=== PATIENT | male | born 1960 | race Caucasian/White ===

== ENCOUNTER 2024-02-13 20:26 | Inpatient (IN) ==
--- NOTE | 2024-02-13 20:36 | Emergency Department Note ---
Impression & Plan Colonic mass, Bowel obstruction, Nausea, Acute UTI, Abdominal pain ED Provider Note NAME: DOROTHY GROSS AGE: 64 SEX: M : 1960 ARRIVES VIA: Walk-In INFORMANT: Patient, significant other ED PROVIDER(S): Jose R Tran MD CHIEF COMPLAINT: Abdominal pain, abnormal CAT scan, possible bowel obstruction and cancer MEDICAL DECISION MAKING: Patient presented due to concern for possible bowel obstruction as well as colon cancer. I was able to obtain the patient's outpatient records IV was established blood work was obtained initially CTs were ordered pending patient's outpatient records. Patient was ordered IV fluids IV morphine as well as IV Zosyn. Blood culture obtained along with a VBG and a lactate. Blood work shows a white count of 13 with a hemoglobin of 8.3. Platelet count is elevated at 76. Blood gas pH that is slightly higher than normal but no evidence of acidosis. Hypokalemia and hypocalcemia noted. Magnesium was added. Patient was ordered a gram of calcium for replacement. The patient's urinalysis does show concern for possible infection. Given the concerns for the bowel obstruction as well as new cancer diagnoses I did speak with Dr. Lugo he recommended transfer to tertiary care center. I did speak with Dr. Mcdonnell at [facility] who did accept the patient. No beds available until tomorrow. I did order chest and abdominal x-ray which does show likely bowel obstruction but no evidence of obvious free air under the diaphragm. I did discuss this further with Dr. Lugo who recommended an NG tube. Given that there are no beds currently available the patient was admitted to [facility] by Dr. Wiley. KUB was obtained post NG placement and did appear in appropriate position at this time. Discussion w/ other healthcare providers: Dr. Lugo general surgery Dr. Mcdonnell general surgery [facility] Dr. Wiley inpatient medicine service Prior /Outside records reviewed: [facility] note from earlier today from a Dr. Kline. Patient did have a white count of [address] of the abdomen pelvis that showed concern for possible gastroesophageal mass as well as rectosigmoid mass bowel obstruction adrenal nodule and possible bladder fistulization. Patient reportedly left AGAINST MEDICAL ADVICE at that time. The patient's CT angiography of the chest did not show any evidence of PE. Differential diagnosis: Appendicitis, testicular torsion, UTI, diverticulitis, obstruction, renal colic, mesenteric adenitis, enteririts, PUD, pancreatitis, biliary pathology, hernia, volvulus, constipation, as well as other pathologies were considered. Diagnostics, as interpreted by me: ECG: None Cardiac monitoring: An order was placed for continuous cardiac monitoring. The monitor shows a rate of 109 with tachycardic and regular rhythm. Patient was placed on pulse oximetry Medical decision rules: None Imaging studies: I reviewed some of the patient's prior imaging study reports as noted above the patient did have a CT angiography of the chest as well as CT abdomen pelvis. I informally interpreted the patient's chest and abdominal x-rays which do show bowel obstruction but without obvious free air under the diaphragm. HPI: Patient presents with significant other bedside due to concern for reported bowel obstructions as well as possible new masses. Patient reports that he had about 2 weeks of abdominal pain which is in the lower and mid abdomen. Nonradiating. Has been fairly constant although does come and go. The patient states that he does get nausea and sometimes will precipitate and induce emesis. The patient states he did have some of this this morning states that it is a little bit of brown. Patient denies any chest pains or shortness of breath. Patient states that he when he did urinate today did have some air noted in it. The patient reports that his CAT scan reported some invasion of the mass into the bladder. PAST MEDICAL HISTORY: See Below PAST SURGICAL HISTORY: See Below SOCIAL HISTORY: See Below HOME MEDICATIONS: See Below ALLERGIES: See Below VITALS: See Below PHYSICAL EXAMINATION: GENERAL: NAD, non-toxic. EYE EXAM: Normal conjunctiva. PERRL, no anisocoria and EOM's grossly intact w/o pain. OROPHARYNX: Moist mucus membranes, grossly normal dentition. NECK: Trachea midline, no stridor. LUNGS: Clear to auscultation. Normal chest wall mechanics. HEART: Tachycardic and regular, no MRG. ABDOMEN: Mild distention, no reproducible pain, no masses, no rebound or guarding. BACK: No CVA TTP. SKIN: No rashes and no bruising. UPPER EXTREMITIES: Upper extremities are grossly normal. LOWER EXTREMITIES: Grossly normal, no edema. NEURO EXAM: A&O x3, cranial nerves II-XII grossly intact, normal speech, moves all 4 extremities. Past Med/Surg History Problem List (Updated 02/14/24 @ 00:45 by Jose R Tran MD) Abdominal pain (Acute) Acute UTI (Acute) Nausea (Acute) Bowel obstruction (Acute) Colonic mass (Acute) Social History Preferred Language: Bulgarian Feels Safe at Home: Yes Allergies Allergies Allergy/AdvReac Type Severity Reaction Status Date / Time pollen extracts Allergy Congested Unverified 02/13/24 22:01 Home Meds Home Medications Medication Instructions Recorded Confirmed No Known Home Medications 02/13/24 02/13/24 Results & Data (ED) Vital Signs Vital Signs - 24 hr 02/13/24 20:32 02/13/24 22:16 02/13/24 22:48 Temperature 36.7 C Temperature Source Temporal Artery Scan Pulse Rate 130 H 110 H Pulse Rate from SpO2 Sensor 92 H Respiratory Rate 16 24 Blood Pressure 123/76 136/99 Blood Pressure Mean 91 111 Pulse Oximetry 98 96 Oxygen Delivery Method Room Air Room Air Sepsis Recent Fever Within 48 Hours No Sepsis New/Unexplained Change in Mental Status No Sepsis Action Taken by Nursing No Action Required 02/13/24 22:50 Temperature Temperature Source Pulse Rate 119 H Pulse Rate from SpO2 Sensor Respiratory Rate Blood Pressure Blood Pressure Mean Pulse Oximetry Oxygen Delivery Method Sepsis Recent Fever Within 48 Hours Sepsis New/Unexplained Change in Mental Status Sepsis Action Taken by Intermediate Medications Current Medication List: was personally reviewed by me Laboratory Data Attestation: I reviewed the patient's lab results. 02/13/24 21:43 02/13/24 21:43 Lab Results 02/13/24 02/13/24 Range/Units 21:43 Unknown WBC 13.50 H (4.8-10.8) K/ul RBC 4.29 L (4.70-6.10) M/uL Hgb 8.3 L (14.0-18.0) g/dl Hct 27.9 L (42.0-52.0) % MCV 65.0 L (80.0-100.0) fL MCH 19.3 L (25.0-34.0) pg MCHC 29.7 L (32.0-36.0) g/dL RDW Std Deviation 46.6 H (36.4-46.3) fL RDW Coeff of Eddie 20.8 H (11.5-14.5) % Plt Count 786 H (130-400) K/uL MPV 8.2 L (9.4-12.4) fL Immature Gran % (Auto) 0.3 % Neut % (Auto) 78.5 % Lymph % (Auto) 10.3 % Payne % (Auto) 10.8 % Eos % (Auto) 0.0 % Baso % (Auto) 0.1 % Neut # (Auto) 10.60 H (1.40-6.50) K/uL Lymph # (Auto) 1.39 (1.20-3.40) K/uL Payne # (Auto) 1.46 H (0.11-0.59) K/uL Eos # (Auto) 0.00 (0.00-0.50) K/uL Baso # (Auto) 0.01 (0.00-0.20) K/uL Immature Gran # (Auto) 0.04 (0.01-0.20) K/uL Poikilocytosis Present Anisocytosis Present Microcytosis Present Target Cells 1+ VBG pH 7.48 H (7.36-7.41) VBG pCO2 43 (38-50) mmHg VBG pO2 22 mmHg VBG HCO3 32 mmol/L VBG O2 Saturation < 60.0 % VBG Base Excess 7.6 mEq/L Sodium 136 (136-145) mmol/L Potassium 3.4 L (3.5-5.1) mmol/L Chloride 99 (98-107) mmol/L Carbon Dioxide 27 (21-32) mmol/L Anion Gap 10 (3-11) BUN 22 (6-23) mg/dl Creatinine 0.80 (0.6-1.4) mg/dl Est Cr Clr Drug Dosing 94.5 ml/min eGFR 99.44 BUN/Creatinine Ratio 27.5 H (10-20) Glucose 204 H (70-99(Fasting)) mg/dl Lactate 1.6 (0.4-2.0) mmol/L Calcium 8.1 L (8.6-10.3) mg/dl Magnesium 1.8 (1.7-2.4) mg/dl Total Bilirubin 0.8 (0.2-1.0) mg/dl AST 12 L (13-39) U/L ALT 11 (7-52) U/L Alkaline Phosphatase 51 (34-104) U/L Total Protein 6.0 (6.0-8.3) gm/dl Albumin 3.0 L (3.4-5.0) gm/dl Globulin 3.0 (2.5-4.0) gm/dl Albumin/Globulin Ratio 1.0 (0.9-2) Lipase 3 L (11-82) U/L Procalcitonin 0.10 (0-0.5) ng/ml Urine Color [place] Urine Appearance Turbid A (Clear) Urine pH 5.5 (4.5-7.5) Ur Specific [place] > 1.045 H (1.000-1.030) Urine Protein 2+ H (Negative) Urine Glucose (UA) Negative (Negative) Urine Ketones Trace H (Negative) Urine Blood 3+ H (Negative) Urine Nitrite Positive A (Negative) Urine Bilirubin 2+ H (Negative) Urine Urobilinogen Negative (Negative) Ur Leukocyte Esterase 3+ H (Negative) Urine WBC (Auto) >50 H (0-5) /hpf Urine RBC (Auto) >20 H (0-2) /hpf U Hyaline Cast (Auto) >20 H (0-2) /lpf U Epithel Cells (Auto) 6-10 H (0-2) /hpf Urine Bacteria (Auto) 4+ H (None Seen) Administered Medications Discontinued Medications Piperacillin Sod/Tazobactam Sod (Zosyn) 4.5 gm in 100 mls @ 200 mls/hr IV NOW ONE; Protocol Stop: 02/13/24 21:18 Last Infusion: 02/13/24 23:29 Dose: Infused Documented By: Admin: 02/13/24 21:48 Dose: 200 mls/hr Documented By: CARLOS Sodium Chloride (Nss) 1,000 mls @ 999 mls/hr IV .Q1H1M ONE Stop: 02/13/24 21:49 Last Infusion: 02/13/24 23:29 Dose: Infused Documented By: Admin: 02/13/24 21:48 Dose: 999 mls/hr Documented By: CARLOS Calcium Gluconate () 1,000 mg in 60 mls @ 240 mls/hr IV NOW STA Stop: 10/11/24 22:55 Last Infusion: 02/13/24 23:59 Dose: Infused Documented By: MLJose E Admin: 02/13/24 23:25 Dose: 240 mls/hr Documented By: FRANKI Labetalol HCl (Labetalol Hcl Iv 5 Mg/Ml 20ml) 5 mg IV NOW STA Stop: 02/13/24 22:56 Last Admin: 02/13/24 23:08 Dose: Not Given Documented By: BS Morphine Sulfate (Morphine Sulfate 4 Mg/Ml 1 Ml Carp\Vial) 4 mg IV NOW STA Stop: 02/13/24 21:56 Last Admin: 02/13/24 22:02 Dose: 4 mg Documented By: BS Discharge Plan Visit Data Chief Complaint: GI Assessment Stated Complaint: CANCER,BLOCKED BOWEL ED Provider: Jose R Tran Discharge Problem: Colonic mass, Bowel obstruction, Nausea, Acute UTI, Abdominal pain Forms Stand Alone Forms: [place] Prescriptions Prescriptions: No Action No Known Home Medications Referrals Referrals: PCP,NO [Physician] - Discharge Problem: Bowel obstruction Qualifiers: Intestinal obstruction type: unspecified Intestinal obstruction extent: u nspecified extent Qualified Code(s): K56.609 - Unspecified intestinal obstruction, unspecified as to partial versus complete obstruction Abdominal pain Qualifiers: Abdominal location: generalized Qualified Code(s): R10.84 - Generalized abdominal pain
[2024-02-13] MEDS: PIPERACILLIN/TAZOBACTAM 4.5 GM/100 ML BAG IV ONE (21:48)
[2024-02-13] MEDS: SODIUM CHLORIDE 0.9% 1,000 ML IV ONE (21:48)
[2024-02-13 21:54] LABS: Base Excess VBG 7.6 mEq/L; HCO3 VBG 32 mmol/L; Oxygen Saturation VBG < 60.0 %; PCO2 VBG 43 mmHg (38-50); PO2 VBG 22 mmHg; pH VBG 7.48 (7.36-7.41)
[2024-02-13] MEDS: MoRPHine SULFATE 4 MG/ML 1 ML CARP\\VIAL IV STA (22:02)
[2024-02-13 22:04] LABS: Basophils # (auto) 0.01 K/uL (0.00-0.20); Basophils % (auto) 0.1 %; Hematocrit (blood only) 27.9 % (42.0-52.0); Hemoglobin 8.3 g/dl (14.0-18.0); Immature Granulocytes # (auto) 0.04 K/uL (0.01-0.20); Immature Granulocytes % (auto) 0.3 %; Lymphocytes # (auto) 1.39 K/uL (1.20-3.40); Lymphocytes % (auto) 10.3 %; Mean Corpuscular Hemoglobin 19.3 pg (25.0-34.0); Mean Corpuscular Hgb Conc 29.7 g/dL (32.0-36.0); Monocytes # (auto) 1.46 K/uL (0.11-0.59); Monocytes % (auto) 10.8 %; Neutrophils % (auto) 78.5 %; RDW Coefficient of Variation 20.8 % (11.5-14.5); RDW Standard Deviation 46.6 fL (36.4-46.3); Red Blood Count 4.29 M/uL (4.70-6.10)
[2024-02-13 22:11] LABS: BUN Creatinine Ratio 27.5 (10-20); Bilirubin,Total 0.8 mg/dl (0.2-1.0); Calcium 8.1 mg/dl (8.6-10.3); Creatinine Clr Calc Pharmacy 94.5 ml/min; Potassium 3.4 mmol/L (3.5-5.1)
[2024-02-13 22:29] LABS: Appearance Urine Turbid (Clear); Bacteria Urine Automated 4+ (None Seen); Bilirubin Urine 2+ (Negative); Blood Urine 3+ (Negative); Cast Urine Automated >20 /lpf (0-2); Color Urine Orange; Glucose Urine UA Negative (Negative); Ketones Urine Trace (Negative); Leukocyte Esterase Urine 3+ (Negative); Nitrite Urine Positive (Negative); Protein Urine 2+ (Negative); RBC Urine Automated >20 /hpf (0-2); Specific Gravity Urine > 1.045 (1.000-1.030); Urobilinogen Urine Negative (Negative); WBC Urine Automated >50 /hpf (0-5); pH Urine 5.5 (4.5-7.5)
[2024-02-13 22:37] LABS: Mean Platelet Volume 8.2 fL (9.4-12.4); Platelet Count 786 K/uL (130-400)
[2024-02-13 22:50] LABS: Anisocytosis Present; Microcytosis Present; Poikilocytosis Present; Target Cells 1+
[2024-02-13] MEDS: LABETALOL HCL IV 5 MG/ML 20ML IV STA (23:08)
[2024-02-13 23:11] LABS: Magnesium 1.8 mg/dl (1.7-2.4)
--- NOTE | 2024-02-13 23:13 | History & Physical Report ---
Date of Service February 13, 2024 Assessment & Plan (1) Colonic mass: Plan: 64-year-old male with past medical history significant for hypertension, impaired fasting glucose went to PCPs office today because of ongoing nausea vomiting, diarrhea and abdominal pain and was sent to ER where he was found to have abdominal mass. Patient states last 3 months he lost about 30 pounds. Last 2 weeks he is having a lot of nausea ,abdominal pain and diarrhea on and of f. Was not able to eat much. He is on Toprol-XL 50 mg daily for his blood pressure as per patient but not taking for last 2 weeks because of lot of nausea and also thought the blood pressure is low because of loss of lot of weight. At PCPs office today also found to have tachycardia. Initially went to [place] ER where CAT scan was done which showed massive colonic distention on the basis of an obstructing rectosigmoid mass which is highly suspicious of malignancy and also there was dependent air within the urinary bladder and also thickening of esophagus and proximal stomach with masslike thickening of the GE junction and also solid 3 cm nodule lateral limb left adrenal gland found. Then patient came to [facility]. Er discussed with surgery and was recommended transfer to tertiary care. [facility] general surgery accepted in transfer but they do not have beds tonight so we are called for admission. On presentation heart rate was in 130s .Currently tachycardia improved. Has nausea and hiccups. Denies any headache. No dizziness. No blurred vision. No runny nose or sore throat. No cough. No difficulty swallowing. No chest pain or shortness of breath. Denies any blood in the stools. Urine is dark. Ambulating okay. Denies any fevers. Colonic mass New diagnosis Last 30 pounds in 3 months Last 2 weeks nausea and abdominal pain and diarrhea Vomiting CT scan showing massive colonic distention possible obstructing rectosigmoid mass suspicious for malignancy and also dependent air in urinary bladder. 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 Also thickening of his esophagus and proximal stomach at GE junction. Solitary significant nodule lateral limb left adrenal gland. Awaiting transfer to [place] [facility] Zosyn for possible rectovesical fistula and UTI IV fluids N.p.o. IV antiemetics as needed IV Dilaudid as needed Tachycardia Patient stopped his Toprol-XL about [address] an IV Lopressor 2.5 mg every 6 hours with holding parameters Hypertension IV Lopressor 2.5 g every 6 hours with holding parameters Will monitor Anemia Mostly from above Will follow labs Hypokalemia Will replace Mild hypocalcemia Received calcium gluconate in the ER Follow labs DVT prophylaxis SCDs Disposition Telemetry Awaiting transfer to [place] History of Present Illness Chief Complaint: Nausea and vomiting. Abdominal mass Primary Care Provider: Marry Tiwari PA-C 64-year-old male with past medical history significant for hypertension, impaired fasting glucose went to PCPs office today because of ongoing nausea vomiting, diarrhea and abdominal pain and was sent to ER where he was found to have abdominal mass. Patient states last 3 months he lost about 30 pounds. Last 2 weeks he is having a lot of nausea ,abdominal pain and diarrhea on and off. Was not able to eat much. He is on Toprol-XL 50 mg daily for his blood pressure as per patient but not taking for last 2 weeks because of lot of nausea and also thought the blood pressure is low because of loss of lot of weight. At PCPs office today also found to have tachycardia. Initially went to [place] ER where CAT scan was done which showed massive colonic distention on the basis of an obstructing rectosigmoid mass which is highly suspicious of malignancy and also there was dependent air within the urinary bladder and also thickening of esophagus and proximal stomach with masslike thickening of the GE junction and also solid 3 cm nodule lateral limb left adrenal gland found. Then patient came to [facility]. Er discussed with surgery and was recommended transfer to tertiary care. [facility] general surgery accepted in transfer but they do not have beds tonight so we are called for admission. On presentation heart rate was in 130s .Currently tachycardia improved. Has nausea and hiccups. Denies any headache. No dizziness. No blurred vision. No runny nose or sore throat. No cough. No difficulty swallowing. No chest pain or shortness of breath. Denies any blood in the stools. Urine is dark. Ambulating okay. Denies any fevers. Past medical history. As mentioned above Past surgical history. Patient denies any surgeries. Social history. Denies smoking. Denies alcohol use. Denies drug use. Family history. Father had colon and esophageal cancer. Mother had squamous cancer of the mouth. Allergies Allergy/AdvReac Type Severity Reaction Status Date / Time pollen extracts Allergy Congested Unverified 02/13/24 22:01 Home Medications Medication Instructions Recorded Confirmed Type No Known Home Medications 02/13/24 02/13/24 History Past Med/Surg History Problem List (Updated 02/14/24 @ 00:56 by Melvin Bower) Abdominal pain (Acute) Acute UTI (Acute) Nausea (Acute) Bowel obstruction (Acute) Colonic mass (Acute) Social History Smoking Status: Never smoker Hx Alcohol Use: No Hx Substance Use: No Preferred Language: [place] Communication Ability: Effective Psychology Department Chair Required: No Beliefs That Will Affect Care: None Current Living Situation: Alone Feels Safe at Home: Yes Safety Concerns: Feels Safe At This Time Assistive Devices: None Review of Systems Review of Systems: All systems reviewed & are unremarkable except as noted in HPI & below Physical Exam Physical Exam: General- Not in distress Head- atraumatic Eyes- PERRL. ENT- oropharynx clear Neck- supple, no JVD. Lungs- clear to auscultation no wheezing or crackles Heart- regular rhythm; no murmur, no gallop. Abdomen- normal bowel sounds, soft, mild diffuse discomfort, no distension. Extremities- no pretibial edema, no erythema seen. Neuro- alert, oriented PERRL, no facial palsy; no dysarthria; moves extremities Results & Data Results & Data Vital Signs (Past 12 Hours) Vital Signs Temp Pulse Resp BP Pulse Ox O2 Del Method 02/13/24 22:48 110 H 24 136/99 96 02/13/24 22:16 Room Air 02/13/24 20:32 36.7 C 130 H 16 123/76 98 Room Air Diagnostic Findings Laboratory Results WBC 13.50 K/ul (4.8-10.8) H 02/13/24 21:43 RBC 4.29 M/uL (4.70-6.10) L 02/13/24 21:43 Hgb 8.3 g/dl (14.0-18.0) L 02/13/24 21:43 Hct 27.9 % (42.0-52.0) L 02/13/24 21:43 MCV 65.0 fL (80.0-100.0) L 02/13/24 21:43 MCH 19.3 pg (25.0-34.0) L 02/13/24 21:43 MCHC 29.7 g/dL (32.0-36.0) L 02/13/24 21:43 RDW Std Deviation 46.6 fL (36.4-46.3) H 02/13/24 21:43 RDW Coeff of Eddie 20.8 % (11.5-14.5) H 02/13/24 21:43 Plt Count 786 K/uL (130-400) H 02/13/24 21:43 MPV 8.2 fL (9.4-12.4) L 02/13/24 21:43 Immature Gran % (Auto) 0.3 % 02/13/24 21:43 Neut % (Auto) 78.5 % 02/13/24 21:43 Lymph % (Auto) 10.3 % 02/13/24 21:43 [place] % (Auto) 10.8 % 02/13/24 21:43 Eos % (Auto) 0.0 % 02/13/24 21:43 Baso % (Auto) 0.1 % 02/13/24 21:43 Neut # (Auto) 10.60 K/uL (1.40-6.50) H 02/13/24 21:43 Lymph # (Auto) 1.39 K/uL (1.20-3.40) 02/13/24 21:43 [place] # (Auto) 1.46 K/uL (0.11-0.59) H 02/13/24 21:43 Eos # (Auto) 0.00 K/uL (0.00-0.50) 02/13/24 21:43 Baso # (Auto) 0.01 K/uL (0.00-0.20) 02/13/24 21:43 Immature Gran # (Auto) 0.04 K/uL (0.01-0.20) 02/13/24 21:43 Poikilocytosis Present 02/13/24 21:43 Anisocytosis Present 02/13/24 21:43 Microcytosis Present 02/13/24 21:43 Target Cells 1+ 02/13/24 21:43 VBG pH 7.48 (7.36-7.41) H 02/13/24 21:43 VBG pCO2 43 mmHg (38-50) 02/13/24 21:43 VBG pO2 22 mmHg 02/13/24 21:43 VBG HCO3 32 mmol/L 02/13/24 21:43 VBG O2 Saturation < 60.0 % 02/13/24 21:43 VBG Base Excess 7.6 mEq/L 02/13/24 21:43 Sodium 136 mmol/L (136-145) 02/13/24 21:43 Potassium 3.4 mmol/L (3.5-5.1) L 02/13/24 21:43 Chloride 99 mmol/L (98-107) 02/13/24 21:43 Carbon Dioxide 27 mmol/L (21-32) 02/13/24 21:43 Anion Gap 10 (3-11) 02/13/24 21:43 BUN 22 mg/dl (6-23) 02/13/24 21:43 Creatinine 0.80 mg/dl (0.6-1.4) 02/13/24 21:43 Est Cr Clr Drug Dosing 94.5 ml/min 02/13/24 21:43 eGFR 99.44 02/13/24 21:43 BUN/Creatinine Ratio 27.5 (10-20) H 02/13/24 21:43 Glucose 204 mg/dl (70-99(Fasting)) H 02/13/24 21:43 Lactate 1.6 mmol/L (0.4-2.0) 02/13/24 21:43 Calcium 8.1 mg/dl (8.6-10.3) L 02/13/24 21:43 Magnesium 1.8 mg/dl (1.7-2.4) 02/13/24 21:43 Total Bilirubin 0.8 mg/dl (0.2-1.0) 02/13/24 21:43 AST 12 U/L (13-39) L 02/13/24 21:43 ALT 11 U/L (7-52) 02/13/24 21:43 Alkaline Phosphatase 51 U/L (34-104) 02/13/24 21:43 Total Protein 6.0 gm/dl (6.0-8.3) 02/13/24 21:43 Albumin 3.0 gm/dl (3.4-5.0) L 02/13/24 21:43 Globulin 3.0 gm/dl (2.5-4.0) 02/13/24 21:43 Albumin/Globulin Ratio 1.0 (0.9-2) 02/13/24 21:43 Lipase 3 U/L (11-82) L 02/13/24 21:43 Procalcitonin 0.10 ng/ml (0-0.5) 02/13/24 21:43 Urine Color [place] 02/13/24 Unknown Urine Appearance Turbid (Clear) A 02/13/24 Unknown Urine pH 5.5 (4.5-7.5) 02/13/24 Unknown Ur Specific [place] > 1.045 (1.000-1.030) H 02/13/24 Unknown Urine Protein 2+ (Negative) H 02/13/24 Unknown Urine Glucose (UA) Negative (Negative) 02/13/24 Unknown Urine Ketones Trace (Negative) H 02/13/24 Unknown Urine Blood 3+ (Negative) H 02/13/24 Unknown Urine Nitrite Positive (Negative) A 02/13/24 Unknown Urine Bilirubin 2+ (Negative) H 02/13/24 Unknown Urine Urobilinogen Negative (Negative) 02/13/24 Unknown Ur Leukocyte Esterase 3+ (Negative) H 02/13/24 Unknown Urine WBC (Auto) >50 /hpf (0-5) H 02/13/24 Unknown Urine RBC (Auto) >20 /hpf (0-2) H 02/13/24 Unknown U Hyaline Cast (Auto) >20 /lpf (0-2) H 02/13/24 Unknown U Epithel Cells (Auto) 6-10 /hpf (0-2) H 02/13/24 Unknown Urine Bacteria (Auto) 4+ (None Seen) H 02/13/24 Unknown Code Status & VTE Plan VTE Prophylaxis Plan VTE Prophylaxis will be ordered: Yes
[2024-02-13] MEDS: CALCIUM GLUCONATE 1,000 MG/60 ML BAG IV STA (23:25)
[2024-02-14] MEDS ORDERED: NITROGLYCERIN SL 0.4 MG/TAB TAB SL PRN (01:04)
[2024-02-14] MEDS ORDERED: ONDANSETRON INJ 2 MG/ML 2 ML VIAL IV PRN (01:04)
[2024-02-14] MEDS ORDERED: HYDROmorphone INJ 0.5 MG/0.5 ML SYR IV PRN (01:04)
[2024-02-14] MEDS: HYDROmorphone INJ 0.5 MG/0.5 ML SYR IV PRN ×2 (01:22→05:10)
[2024-02-14] MEDS: METOPROLOL TARTRATE 1 MG/ML VIAL IV SCH (01:23)
[2024-02-14] MEDS: POTASSIUM CHLORIDE / WTR 10 MEQ/100 ML PLCT IV SCH (01:34)
[2024-02-14] MEDS: D5W AND NSS 1,000 ML IV SCH (01:34)
[2024-02-14] MEDS: PIPERACILLIN/TAZOBACTAM 4.5 GM/100 ML BAG IV SCH (03:41)
[2024-02-14 03:47] VITALS: RESP 18; O2SAT 92
[2024-02-14 05:59] LABS: Basophils # (auto) 0.01 K/uL (0.00-0.20); Basophils % (auto) 0.1 %; Eosinophils # (auto) 0.01 K/uL (0.00-0.50); Eosinophils % (auto) 0.1 %; Hematocrit (blood only) 26.4 % (42.0-52.0); Hemoglobin 7.8 g/dl (14.0-18.0); Immature Granulocytes # (auto) 0.05 K/uL (0.01-0.20); Immature Granulocytes % (auto) 0.3 %; Lymphocytes # (auto) 1.72 K/uL (1.20-3.40); Lymphocytes % (auto) 11.9 %; Mean Corpuscular Hemoglobin 19.4 pg (25.0-34.0); Mean Corpuscular Hgb Conc 29.5 g/dL (32.0-36.0); Mean Corpuscular Volume 65.7 fL (80.0-100.0); Monocytes # (auto) 1.75 K/uL (0.11-0.59); Monocytes % (auto) 12.1 %; Neutrophils # (auto) 10.87 K/uL (1.40-6.50); Neutrophils % (auto) 75.5 %; RDW Coefficient of Variation 20.8 % (11.5-14.5); RDW Standard Deviation 47.7 fL (36.4-46.3); Red Blood Count 4.02 M/uL (4.70-6.10); White Blood Count 14.41 K/ul (4.8-10.8)
[2024-02-14 06:08] LABS: Mean Platelet Volume 8.1 fL (9.4-12.4); Platelet Count 745 K/uL (130-400)
[2024-02-14 06:17] LABS: Albumin Level 2.8 gm/dl (3.4-5.0); BUN Creatinine Ratio 29.4 (10-20); Bilirubin Direct 0.2 mg/dl (0-0.2); Bilirubin,Total 0.6 mg/dl (0.2-1.0); Calcium 7.8 mg/dl (8.6-10.3); Creatinine Clr Calc Pharmacy 111.2 ml/min; Magnesium 1.7 mg/dl (1.7-2.4); Phosphorus 3.3 mg/dl (2.5-4.9); Potassium 3.3 mmol/L (3.5-5.1); Total Protein 5.5 gm/dl (6.0-8.3)
[2024-02-14 06:29] LABS: Anisocytosis Present; Microcytosis Present; Poikilocytosis Present; Polychromasia 2+
[2024-02-14 07:36] VITALS: BP 151/88; PULSE 96; TEMP 98.4
--- NOTE | 2024-02-14 07:50 | XRay Report ---
KUB HISTORY: Status post placement of an enteric tube NG tube placement confirmation COMPARISON: Acute abdominal series radiographs 02/13/2024 FINDINGS: Status post placement of an enteric tube, distal tip in the expected location of the mid st omach. Extensive fecal retention of the right hemicolon. Gaseous distention of the large bowel measur es up to approximately 8.3 cm. No definite pneumoperitoneum or small bowel dilation identified. Renal shadows are obscured. No definite urolith. IMPRESSION: 1. Status post placement of an enteric tube, distal tip in the expected location of the mid gastric b nathalie. 2. Marked fecal retention is most pronounced in the right hemicolon. 3. Gaseous distention of the large bowel suggestive of colonic ileus. A distal obstruction could appe ar similarly. Follow-up recommended. ACT 112: Negative or not required by law. The above report was generated using voice recognition software. It may contain grammatical, syntax o r spelling errors. Electronically signed by: Roberto Chand M.D. 02/14/2024 7:49 AM
--- NOTE | 2024-02-14 07:50 | XRay Report ---
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 There is mild subsegmental bibasila r atelectasis. No pneumothorax or pleural effusion. Spondylotic spurring of the spine. Contrast noted within the urinary bladder lumen. Extensive fecal retention of the right hemicolon. Ga seous distention of the large bowel measures up to approximately 8.3 cm. No definite pneumoperitoneum or small bowel dilation identified. Renal shadows are obscured. Lumbar levoscoliosis. No definite ur olith. IMPRESSION: 1. No acute process of the chest. 2. Marked fecal retention is most pronounced in the right hemicolon. 3. Gaseous distention of the large bowel suggestive of colonic ileus. A distal obstruction could appe ar similarly. Follow-up recommended. ACT 112: Negative or not required by law. The above report was generated using voice recognition software. It may contain grammatical, syntax o r spelling errors. Electronically signed by: Roberto Chand M.D. 02/14/2024 7:48 AM
--- OUTSIDE RECORDS SUMMARY | 2024-02-14 09:47 | External Medical Summary | Summary of Care ---
Author Name Unknown Organization [facility] Address [address] [place] [address] Phone [phone] Care Team Providers Care Certified Fire Investigator Name Role Phone Unavailable Primary Care Provider Unavailabl e Reason for Visit * Reason Comments Acute Encounter Details Date Type Department Care Team (Late st Contact Info) Description 02/13/2024 10:20 AM EDT Office Visit Family Medicine [address] [place] [phone] Marry Tiwari PA-C [address] [place] [address] D[place] Dorado [id number] Tachycardia* Allergies Active Allergy Reactions Criticality Noted Date Comments Lisinopril Hives 11/25/2011 documented as of this encounter (statuses as of 02/13/2024) Medications Medication Sig Dispensed Refills Start Date End Date Status Metoprolol Succinate ER 50 MG Oral Tablet Extended Release 24 Hour (toPROL XL)Indications:[facility] hypertension TAKE 1 TABLET BY MOUTH EVERY DAY IN THE MORNING 90 Tablet 1 02/24/2023 02/13/2024 Discontinued documented as of this encounter (statuses as of 02/13/2024) Active Problems Problem Noted Date Diagnosed Date BMI 33.0-33.9,adult 01/23/2022 Overview: 229 Primary hypertension 11/18/2011 Impaired fasting glucose documented as of this encounter (statuses as of 02/13/2024) Resolved Problems Problem Noted Date Diagnosed Date Resolved Date Anxiety disorder 06/09/2015 documented as of this encounter (statuses as of 02/13/2024) Immunizations Name Administration Dates Next Due PPD 09/06/2013 TDAP, Age 7 and older, IM (Adacel) 09/14/2018 documented as of this encounter Social History Tobacco Use Types Packs/Day Years Used Date Smoking Tobacco: Never Smokeless Tobacco: Never Alcohol Use Standard Drinks/Week Comments No 0 (1 standard drink = 0.6 oz pur e alcohol) Sex and Gender Information Value Date Recorded Sex Assigned at Not on file Gender Identity Not on file Sexual Orientation Not on file Job Start Date Occupation Industry Not on file Not on file Not on file documented as of this encounter Last Filed Vital Signs Vital Sign Reading Time Taken Comments Blood Pressure 142/96 02/13/2024 9:14 AM EDT Pulse 124 02/13/2024 9:14 AM EDT Temperature 36.3 C (97.4 F) 02/13/2024 9:14 AM ED T Respiratory Rate - - Oxygen Saturation 95% 02/13/2024 9:14 AM EDT Inhaled Oxygen Concentration - - Weight 79.8 kg (176 lb) 02/13/2024 9:14 AM EDT Height 175.3 cm (5' 9") 02/13/2024 9:14 AM EDT Body Mass Index 25.99 02/13/2024 9:14 AM EDT documented in this encounter Progress Notes * Marry Tiwari PA-C - 02/13/2024 9:24 AM EDT Nursing Notes: Patricia Champagne LPN 02/13/24 0924 Signed Lost a lot of weight in the last two months, un intentionally Cannot eat Nothing stays down Throwing up "brown" Diarrhea Stomach pain Have been present for about 2-3 weeks Review of patient's allergies indicates: Allergen Reactions Lisinopril Hives No current outpatient medications on file. No current facility-administered medications for this visit. Past Medical History: Diagnosis Date Anxiety disorder 11/22/2011 BMI 33.0-33.9,adult 01/23/2022 229 Encounter for hepatitis C screening test for low risk patient 01/23/2022 negative Impaired fasting glucose 12/30/2011 Primary hypertension 11/18/2011 Social History Socioeconomic History Marital status: Single Spouse name: Not on file Number of children: Not on file Years of education: Not on file Highest education level: Not on file Occupational History Not on file Tobacco Use Smoking status: Never Smokeless tobacco: Never Substance and Sexual Activity Alcohol use: No Drug use: No Sexual activity: Not on file Other Topics Concern Not on file Social History Narrative Not on file Social Determinants of Health Financial Resource Strain: Not on file Food Insecurity: Not on file Transportation Needs: Not on file Social Connections: Unknown (02/13/2024) Social Connections How often do you feel lonely or isolated from those around you? (Adult - for ages 18 years and over): Not on file Housing Stability: Not on file O:Blood pressure 142/96, pulse 124, temperature 36.3 C (97.4 F), temperature source Tympanic, height 1.753 m (5' 9"), weight 79.8 kg (176 lb), SpO2 95%. * Marry Tiwari PA-C - 02/13/2024 9:20 AM EDT Nursing Notes: Patricia Champagne LPN 02/13/24 0916 Sign at exiting of workspace Lost a lot of weight in the last two months, un intentionally Cannot eat Nothing stays down Throwing up "brown" Diarrhea Stomach pain Have been present for about 2-3 weeks Pt here today with abdominal pain, vomiting, diarrhea, large weight loss for the past couple weeks.Pt denies chest pain, SOB, dizziness, lightheadedness, syncope. Review of patient's allergies indicates: Allergen Reactions Lisinopril Hives No current outpatient medications on file. No current facility-administered medications for this visit. Past Medical History: Diagnosis Date Anxiety disorder 11/22/2011 BMI 33.0-33.9,adult 01/23/2022 229 Encounter for hepatitis C screening test for low risk patient 01/23/2022 negative Impaired fasting glucose 12/30/2011 Primary hypertension 11/18/2011 Social History Socioeconomic History Marital status: Single Spouse name: Not on file Number of children: Not on file Years of education: Not on file Highest education level: Not on file Occupational History Not on file Tobacco Use Smoking status: Never Smokeless tobacco: Never Substance and Sexual Activity Alcohol use: No Drug use: No Sexual activity: Not on file Other Topics Concern Not on file Social History Narrative Not on file Social Determinants of Health Financial Resource Strain: Not on file Food Insecurity: Not on file Transportation Needs: Not on file Social Connections: Unknown (02/13/2024) Social Connections How often do you feel lonely or isolated from those around you? (Adult - for ages 18 years and over): Not on file Housing Stability: Not on file O:Blood pressure 142/96, pulse 124, temperature 36.3 C (97.4 F), temperature source Tympanic, height 1.753 m (5' 9"), weight 79.8 kg (176 lb), SpO2 95%. GENERAL: distress HEART: no murmur, no gallops, irregularly irregular, and tachycardia ABDOMEN: abdomen soft, normal bowel sounds, and no masses or organomegaly. Mid- epigastric tenderness A:Tachycardia (Primary) - EKG; Future; Expected date: 02/13/2024 EKG abnormal. With sx, pt needs to go to ER. Any questions/problems, please call. If anything changes, worsens, develops new sx, please call [facility]. Follow Up: Return if symptoms worsen or fail to improve. Marry Tiwari PA-C documented in this encounter Nursing Notes * Patricia Champagne LPN - 02/13/2024 9:14 AM EDT Lost a lot of weight in the last two months, un intentionally Cannot eat Nothing stays down Throwing up "brown" Diarrhea Stomach pain Have been present for about 2-3 weeks documented in this encounter Plan of Treatment Scheduled Orders Name Type Priority Associated Diagnoses Orde r Schedule EKG EKG Routine Tachycardia Expected: 02/13/2024 (Approximate), Expi res: 03/15/2025 Health Maintenance Due Date Last Done Comments HIV Screening 02/08/1976 Cologuard 2006 Colonoscopy 2006 Colorectal Cancer Screening 2006 Fecal Occult Blood Test 2006 Sigmoidoscopy 2006 Zoster Vaccines (1 of 2) 2011 Depression Screening 12/20/2016 12/21/2015 GFR 07/23/2023 07/22/2022, 01/04, 06/09/2015, Additional history exists COVID-19 Vaccine ( season) 2024 Influenza Vaccine (FLU shot) (#1) 2024 Albumin/Creatinine Ratio 01/23/2025 01/23/2022 Diabetes Screening 07/22/2025 07/22/2022, 0 01/23/2022, 06/09/2015, Additional history exists Lipid Panel 01/23/2027 01/23/2022, 09/03, 08/12/2011 (Refused) DTap/Tdap Vaccines (2 - Td or Tdap) 09/14/2028 09/14/2018 HPV (Gardasil) Vaccine Aged Out No lo nger eligible based on patient's age to complete this topic Hepatitis B Vaccine Aged Out No longe r eligible based on patient's age to complete this topic MENINGOCOCCAL (MENACTRA/MENVEO) Aged Out No longer eligible based on patient's age to complete this topic Pneumococcal Vaccine: Pediatrics (0 to 5 Years) and At-Risk Patients (6 to 64 Years) Aged Out No longer eligible based on patient's age to complete this topic documented as of this encounter Medical Devices Not on filedocumented as of this encounter Visit Diagnoses Diagnosis Tachycardia- Primary Tachycardia, unspecified documented in this encounter
--- OUTSIDE RECORDS SUMMARY | 2024-02-14 09:47 | External Medical Summary | Summary of Care ---
Author Name Unknown Organization [facility] Address [address] [place] [address] Phone [phone] Care Team Providers Care Restoration Silversmith Name Role Phone Unavailable Primary Care Provider Unavailabl e Reason for Visit * Reason Comments Acute Encounter Details Date Type Department Care Team (Late st Contact Info) Description 02/13/2024 10:20 AM EDT Office Visit Family Medicine [address] [place] [phone] Marry Tiwari PA-C [address] [place] [address] [place] [address] Tachycardia* Allergies Active Allergy Reactions Criticality Noted Date Comments Lisinopril Hives 11/25/2011 documented as of this encounter (statuses as of 02/13/2024) Medications Medication Sig Dispensed Refills Start Date End Date Status Metoprolol Succinate ER 50 MG Oral Tablet Extended Release 24 Hour (toPROL XL)Indications:[facility] hypertension TAKE 1 TABLET BY MOUTH EVERY [...] for about 2-3 weeks Pt here today Review of patient's allergies indicates: Allergen Reactions [...] develops new sx, please call [facility]. Called neighbor to come and pick him up to go to ER.Pt refuses to go to [facility]. He will go to [place]. Tried to convince to go to [facility]. Any questions/problems, please call. If anything changes, [...]
--- OUTSIDE RECORDS SUMMARY | 2024-02-14 09:47 | External Medical Summary | Summary of Care ---
Author Name Unknown Organization [facility] Address [address] [place] [address] Phone [phone] Care Team Providers Care Education Program Specialist Name Role Phone Unavailable Primary Care Provider Unavailabl e Reason for Visit * Reason Comments Acute Encounter Details Date Type Department Care Team (Late st Contact Info) Description 02/13/2024 10:20 AM EDT Office Visit Family Medicine [address] [place] [phone] Marry Tiwari PA-C [address] [place] [address] [place] [address] Tachycardia* Allergies Active Allergy Reactions Criticality Noted Date Comments Lisinopril Hives 11/25/2011 documented as of this encounter (statuses as of 02/13/2024) Medications Medication Sig Dispensed Refills Start Date End Date Status Metoprolol Succinate ER 50 MG Oral Tablet Extended Release 24 Hour (toPROL XL)Indications:[facility] hypertension TAKE 1 TABLET BY MOUTH [...]
--- NOTE | 2024-02-14 11:00 | Electrocardiogram Report ---
Test Reason : Blood Pressure : */* mmHG Vent. Rate : 91 BPM Atrial Rate : 91 BPM P-R Int : 138 ms QRS Dur : 92 ms QT Int : 364 ms P-R-T Axes : 56 -8 14 degrees QTcB Int : 447 ms Normal sinus rhythm Inferior infarct , age undetermined Abnormal ECG No previous ECGs available Confirmed by Ronnell Laura ([id number]) on 02/14/2024 11:00:40 AM Referred By: REFERRED SELF Confirmed By: Ronnell Laura
--- NOTE | 2024-02-14 12:09 | Discharge Summary ---
Date of Service February 14, 2024 Admission HPI Per Admitting Provider 64-year-old male with past medical history significant for hypertension, impaired fasting glucose went to PCPs office today because of ongoing nausea vomiting, diarrhea and abdominal pain and was sent to ER where he was found to have abdominal mass. Patient states last 3 months he lost about 30 pounds. Last 2 weeks he is having a lot of nausea ,abdominal pain and diarrhea on and off. Was not able to eat much. He is on Toprol-XL 50 mg daily for his blood pressure as per patient but not taking for last 2 weeks because of lot of nausea and also thought the blood pressure is low because of loss of lot of brandy ght. At PCPs office today also found to have tachycardia. Initially went to [facility] where CAT scan was done which showed massive colonic distention on the basis of an obstructing rectosigmoid mass which is highly suspicious of malignancy and also there was dependent air within the urinary bladder and also thickening of esophagus and proximal stomach with masslike thickening of the GE junction and also solid 3 cm nodule lateral limb left adrenal gland found. Then patient came to [facility]. Er discussed with surgery and was recommended transfer to tertiary care. [facility] general surgery accepted in transfer but they do not have beds tonight so we are called for admission. On presentation heart rate was in 130s .Currently tachycardia improved. Has nausea and hiccups. Denies any headache. No dizziness. No blurred vision. No runny nose or sore throat. No cough. No difficulty swallowing. No chest pain or shortness of breath. Denies any blood in the stools. Urine is dark. Ambulating okay. Denies any fevers. Past medical history. As mentioned above Past surgical history. Patient denies any surgeries. Social history. Denies smoking. Denies alcohol use. Denies drug use. Family history. Father had colon and esophageal cancer. Mother had squamous cancer of the mouth. Admission Exam Per Admitting Provider General- Not in distress Head- atraumatic Eyes- PERRL. ENT- oropharynx clear Neck- supple, no JVD. Lungs- clear to auscultation no wheezing or crackles Heart- regular rhythm; no murmur, no gallop. Abdomen- normal bowel sounds, soft, mild diffuse discomfort, no distension. Extremities- no pretibial edema, no erythema seen. Neuro- alert, oriented PERRL, no facial palsy; no dysarthria; moves extremities Principal Diagnosis Colonic mass Discharge Exam Constitutional: Alert oriented x 3; not in distress. Respiratory: normal respiratory effort, lungs clear to auscultation, no wheeze, rales, rhonchi. Normal insp/exp effort, no accessory muscle use Cardiovascular: RRR, no murmur, no edema Vessels: no JVD or carotid bruit Chest: normal inspection of chest Abdomen: Abdomen distended. Nontender. Musculoskeletal: no cyanosis or clubbing, extremities motor strength 5/5 Skin: no rashes, warm and dry normal turgor Neurologic: PERRL, EOMI, accommodation nl, no face palsy, no dysarthria CN's II- XI intact bilaterally and moves all extremities Psychiatric: A+Ox3, euthymic affec Discharge Data Allergies Allergy/AdvReac Type Severity Reaction Status Date / Time pollen extracts Allergy Congested Unverified 02/13/24 22:01 Consultations 02/13/24 22:39 ED Decision to Admit Stat Hospital Course (1) Colonic mass: 64-year-old male with past medical history significant for hypertension, impaired fasting glucose went to PCPs office today because of ongoing nausea vomiting, diarrhea and abdominal pain and was sent to ER where he was found to have abdominal mass. Patient states last 3 months he lost about 30 pounds. Last 2 weeks he is having a lot of nausea ,abdominal pain and diarrhea on and off. Was not able to eat much. Patient was At PCPs office on day of the admission. Initially he went to [facility] where CAT scan was done which showed massive colonic distention on the basis of an obstructing rectosigmoid mass which is highly suspicious of malignancy and also there was dependent air within the urinary bladder and also thickening of esophagus and proximal stomach with masslike thickening of the GE junction and also solid 3 cm nodule lateral limb left adrenal gland found. Then, patient came to [facility]. ED discussed with surgery and was recommended transfer to tertiary care. [facility] general surgery accepted in transfer but they do not have beds overnight so, patient was referred for admission. Patient was admitted in telemetry overnight. NG tube was placed for decompression. Patient was started on empiric Zosyn for possible UTI. Patient's vitals were stable throughout the hospitalization. Patient was transferred to [facility] Please note the above document was generated using voice recognition software. It may contain grammatical, syntax or spelling errors. Any formal questions or concerns about the content, text or information contained within the body of this dictation should be directly addressed to the provider for clarification Total Time Total Time Spent Total Time Spent (In Minutes): 34 Total Time Includes: Examination of the Patient, Discharge Planning, Medication Reconciliation, Communication With Other Providers and Other Discharge Plan Discharge Items Patient Disposition: Transfer Acute Care Hospital Reason For Visit: ABDOMINAL MASS, TACHYCARDIA Discharge Diagnosis: Colonic mass Activity: Resume your previous activity Non-emergency contact: Primary Care Provider Call non-emergency contact if: you have any medication questions and your symptoms worsen Follow-up/Referrals: Marry Tiwari PA-C [Primary Care Provider] - Diet: Regular Addtl Attending Provider Instructions: Please follow up with PCP after discharge Date of Service: February 14, 2024 Current Inpatient Medications Hydromorphone HCl (Hydromorphone Inj 0.5 Mg/0.5 Ml Syr) 0.25 mg IV Q6H PRN PRN Reason: Moderate Pain (Scale 4, 5, 6) Stop: 02/28/24 01:03 Hydromorphone HCl (Hydromorphone Inj 0.5 Mg/0.5 Ml Syr) 0.5 mg IV Q3H PRN PRN Reason: Severe Pain (Scale 7, 8, 9,10) Stop: 02/28/24 01:03 Last Admin: 02/14/24 08:06 Dose: 0.5 mg Dextrose/Sodium Chloride (D5w And Nss) 1,000 mls @ 80 mls/hr IV .[id number] CODY Stop: 03/15/24 01:03 Last Admin: 02/14/24 08:59 Dose: 125 mls/hr Piperacillin Sod/Tazobactam Sod (Zosyn) 4.5 gm in 100 mls @ 25 mls/hr IV Q8H CODY; Protocol Stop: 02/24/24 03:59 Last Infusion: 02/14/24 08:01 Dose: Infused Metoprolol Tartrate (Metoprolol Tartrate 1 Mg/Ml Vial) 2.5 mg IV Q6 CODY Stop: 03/15/24 01:03 Last Admin: 02/14/24 05:12 Dose: 2.5 mg Nitroglycerin (Nitroglycerin Sl 0.4 Mg/Tab Tab) 0.4 mg SL Q5M PRN PRN Reason: Chest Pain Stop: 03/15/24 01:03 Ondansetron HCl (Ondansetron Inj 2 Mg/Ml 2 Ml Vial) 4 mg IV Q6H PRN PRN Reason: Nausea Stop: 03/15/24 01:03 Pending Studies at Discharge: No Stand-Alone Forms: [facility] Skilled Items Patient informed of condition?: No DNR: No Discharge Level of Care: Other Communicable Disease: No Discharge Prognosis: Stable Lines: None and Peripheral IV Urinary Catheter: No Medications and DC Order Prescriptions: Continued No Known Home Medications Discharge Orders: Discharge Order (Routine); Ordered 02/14/24 Ordered By: Michael Ramirez Admission Data Admit Date/Time: 02/13/24 22:59 Attending Provider: Michael Ramirez Admit Provider: Geoff Wiley Primary Care Provider: Marry Tiwari Other Providers: Geoff Wiley Other Interventions: Discharge Summary Assessment (RN) Last Done: 02/14/24 09:52
== END 2024-02-14 10:50 | disposition short-term general hospital (02) | DRG 375 ==
LOC: ED 20:26 → 2S 22:59